=== PATIENT | male | born 2000 | race Hispanic/Latino ===

== ENCOUNTER 2023-11-15 17:10 | Emergency (ER) | payer SELFPAY ==
[2023-11-15 17:13] VITALS: BP 155/93
[2023-11-15 17:41] LABS: % Basophils 0.4 % (0-2); % Eosinophils 0.5 % (0-6); % Immature Granulocytes 0.4 % (0-0.5); % Lymphocytes 24.5 % (20.5-51.1); % Monocytes 4.8 % (1.7-9.3); % Neutrophils 69.4 % (42.2-75.2); Absolute Basophils 0.1 10^3/uL (0-0.2); Absolute Eosinophils 0.1 10^3/uL (0-0.7); Absolute Immature Granulocytes 0.1 10^3/uL (0-0.05); Absolute Lymphocytes 3.1 10^3/uL (1.2-3.4); Absolute Monocytes 0.6 10^3/uL (0.1-0.6); Absolute Neutrophils 8.9 10^3/uL (1.4-6.5); Hematocrit 45.6 % (39.0-52.0); Hemoglobin 16.5 g/dL (13.0-18.0); Mean Corp Hgb Conc. 36.2 g/dL (33.0-37.0); Mean Corpuscular Hgb 29.8 pg (27.0-31.0); Mean Corpuscular Volume 82.5 fL (80.0-94.0); Nucleated Red Blood Cells % 0 % (-); Platelet Count 346 10^3/uL (130-400); Red Blood Cell Count 5.53 10^6/uL (4.70-6.10); Red Cell Dist. Width 12.9 % (11.5-14.5); White Blood Cell Count 12.8 10^3/uL (4.8-10.8)
[2023-11-15 17:57] LABS: ALT (SGPT) 15 U/L (0-50); AST (SGOT) 22 U/L (17-59); Alkaline Phosphatase 68 U/L (38-126); Blood Urea Nitrogen 22 mg/dl (9-20); Carbon Dioxide 27 mmol/L (22-30); Chloride 102 mmol/L (98-107); Glucose 85 mg/dl (70-99); Potassium 4.2 mmol/L (3.5-5.1); Sodium 138 mmol/L (135-145); Total Bilirubin 0.6 mg/dl (0.2-1.3); Total Protein 7.7 g/dl (6.3-8.2); eGFR > 60.00
[2023-11-15 18:03] LABS: COVID-19 Antigen Negative (Negative)
[2023-11-15 20:09] LABS: Erythrocyte Sed Rate 2 mm/hour (0-20)
--- NOTE | 2023-11-15 20:11 | ED.GENMED ---
History of Present Illness
General
Chief Complaint: Musculo-Skeletal Complaint
Source: patient
Exam Limitations: none
Time Seen by Provider: 11/15/23 19:04
Nursing documentation reviewed up to this point in time: agreed with
Travel History
Have you had any contact with someone who has COVID-19?: No
Do you have any symptoms of coronavirus? Fever > 100 degrees, chills, cough, shortness of breath, sore throat, loss of taste or smell, muscle aches, or headache?: No
History of Present Illness
History of Present Illness:
Patient is a 23-year-old male who presents to the ER for evaluation. Language line used and translation. Complaining of pain throughout his entire body muscles and joints for the past 2 weeks. He reports he is having subjective fevers he denies
any actual rash but has noticed redness to his knees. He reports a couple days ago he had redness to his left knee now it is in his right knee. He denies any actual swelling.. He has no other complaints that he denies any injury.
Past History
Past History
ED Past Medical History: None; Negative Asthma, HTN, Hypercholesterolemia or NIDDM
ED Past Surgical History: None
Social History
Tobacco: Former smoker
Alcohol: Occasional
Drug: Marijuana
Personal: Single
Living: alone
Review of Systems
Review of Systems
Allergies reviewed?: Yes
All Other Systems: ROS reviewed and negative except as documented in HPI and ROS
Constitutional: Reports fever
EENT: Reports no symptoms
Respiratory: Reports no symptoms
Cardiac: Reports no symptoms
ABD/GI: Reports no symptoms
: Reports no symptoms
Musculoskeletal: Reports joint pain and muscle pain
Skin: Reports other (redness to knees )
Neurological: Reports no symptoms
Psychiatric: Reports no symptoms
Phy Exam
General Physical Exam
General Presentation: no apparent distress
General age: appears stated age
General Skin: warm and dry
General Habitus: normal
General Mental: alert
General Hydration: appears well hydrated
Cardiovascular Exam
Cardiovascular Exam: regular rate/rhythm, no murmur and normal peripheral pulses
Pulmonary Exam
Pulmonary Exam: lungs clear and no respiratory distress
Gastrointestinal Exam
Gastrointestinal Exam: normal bowel sounds, non tender and soft
Neurological Exam
Neurological Exam: alert and oriented x3
Musculoskeletal Exam
Musculoskeletal Exam: full ROM and other (No joint swelling full range of motion all extremities no erythema)
Skin Exam
Skin Exam: normal color and warm/dry
Psychiatric Exam
Psychiatric Exam: normal mood/affect
Course
Orders/Labs/Results
Orders:
Orders
11/15/23 17:30
C-Reactive Protein Urgent
Comment: ADD ON
COVID-19 Antigen Urgent
Source: Nasal Swab
Complete Blood Count/With Diff Urgent
Comprehensive Metabolic Panel Urgent
Creatine Phosphokinase Urgent
Comment: ADD ON
Erythrocyte Sed Rate Urgent
Comment: ADD ON
Lyme Progressive Urgent
Comment: ADD ON
Influenza A+B Rapid Molecular Urgent
LIAN Source: Nasal Swab
Specimen Description:
11/15/23 19:54
Add On- LAB Urgent
Tests Added?: ESR and CRP
11/15/23 19:55
Add On- LAB Urgent
Tests Added?: Lyme
11/15/23 21:30
Vital Signs- Treatment ONCE
Frequency: Once
11/15/23 21:43
Add On- LAB Urgent
Tests Added?: cpk
Abnormal Lab Results
11/15/23
17:30
WBC 12.8 H 10^3/uL
(4.8-10.8)
Abs Immat Gran (auto) 0.1 H 10^3/uL
(0-0.05)
Absolute Neuts (auto) 8.9 H 10^3/uL
(1.4-6.5)
BUN 22 H mg/dl
(9-20)
11/15/23 17:30
11/15/23 17:30
Vital Signs
Initial and Last Documented VS:
Initial Vital Signs
Temp Pulse Resp BP Pulse Ox
98.4 F 100 18 155/93 99
11/15/23 17:13 11/15/23 17:13 11/15/23 17:13 11/15/23 17:13 11/15/23 17:13
Last Documented Vital Signs
Temp Pulse Resp BP Pulse Ox
98.2 F 87 18 133/87 99
11/15/23 21:43 11/15/23 21:43 11/15/23 17:13 11/15/23 21:43 11/15/23 21:43
MDM/Problems Addressed
Differential Diagnosis Includes:
not limited to: viral syndrome possible Lyme
MDM/Problems Addressed:
Patient is a 23-year-old male who presents to the ER for complaints of pain in his arms and legs for the past 2 weeks. He feels sore but denies injury. Denies any fever or chills. He does go to the gym but denies any injury. He presents awake
alert no acute distress. There is no obvious swelling or redness on exam full range of motion to all joints he is nontoxic .he has no weakness on exam.
He denies any fever or chills and is afebrile here white count very minimally elevated. Sed rate CRP normal CPK normal. Patient is in no acute distress and well-appearing Lyme is pending I did review with patient via language line that he will be
contacted if this is positive. He will be given the instructions for f/u with family practice residency clinic
*Critical Care Note
Total Time (30-74mins, 75-104mins- exclusive of procedures): Not Applicable
ED Attending Note
-
Portions of this chart may have been created with voice recognition software.� Occasional wrong word or��sound alike� substitutions may have occurred due to the inherent limitations of voice recognition software.
Discharge Plan
Departure
Patient Disposition: Home (Routine Discharge)
Date of Disposition: 11/15/23
Time of Disposition: 22:33
Patient with high blood pressure during this ER visit?: Yes
Condition: Fair
Covid-19: Not Applicable
Discharge Problem:
Myalgia
Instructions: Muscle and Bone Pain (DC)
Prescriptions:
No Action
Shantel Bounty Anti Anxiety/Stress
1 tab PO HS
ibuprofen 600 mg tablet
600 mg PO Q8H PRN (Reason: Pain) Qty: 15 0RF
diphenhydramine HCl [Benadryl] 25 mg capsule
25 mg PO TID PRN (Reason: itching) Qty: 10 0RF
Referrals:
[facility] [Outside]
NONE,* [Family Provider] -
Activity Restrictions/Additional Instructions:
Follow-up with family practice clinic in the next several days for reevaluation.
return if any worsening of symptoms.
Interventions
Interventions:
*Risk Screen - Suicide Last Done: 11/15/23 17:13
*General Assessment Last Done: 11/15/23 17:13
*Neglect/Abuse Screening Last Done: 11/15/23 17:13
ED- Fall Risk Assessment Last Done: 11/15/23 18:57
*ED COVID-19 Vaccine History Last Done: 11/15/23 18:56
ED-Musculoskeletal Assessment Last Done: 11/15/23 18:58
Discharge Date and Time
Print Language: CENTRAL AFRICAN
[2023-11-15 20:28] VITALS: BMI 28.1
[2023-11-15 20:38] LABS: C-Reactive Protein < 5.00 mg/L (0.0-10.00)
[2023-11-15 21:43] VITALS: BP 133/87
[2023-11-15 22:23] LABS: Creatine Phosphokinase 110 U/L (55-170)
[2023-11-18 16:32] LABS: Lyme Antibody Screen, EIA Negative (Negative)
== END 2023-11-15 22:43 | disposition home or self-care (01) ==
LOC: EMR 17:10
PROVIDERS: Emergency Medicine; EMERGENCY PHYSICIAN Emergency Medicine
DX: M79.18 Myalgia, other site (principal); M79.602 Pain in left arm; M79.601 Pain in right arm; M79.604 Pain in right leg; M79.605 Pain in left leg; R50.9 Fever, unspecified; Z11.52 Encounter for screening for COVID-19; R26.2 Difficulty in walking, not elsewhere classified; Z87.891 Personal history of nicotine dependence
CPT/HCPCS: 99283; 80053; 82550; 85025; 85652; 86140; 86618; 87502; 87811

== ENCOUNTER 2024-03-01 22:37 | Emergency (ER) | payer SELFPAY ==
[2024-03-01 22:39] VITALS: BP 131/91
[2024-03-01 23:04] LABS: % Basophils 0.4 % (0-2); % Eosinophils 1.5 % (0-6); % Immature Granulocytes 0.2 % (0-0.5); % Lymphocytes 46.7 % (20.5-51.1); % Neutrophils 45.2 % (42.2-75.2); Absolute Eosinophils 0.1 10^3/uL (0-0.7); Absolute Lymphocytes 4.5 10^3/uL (1.2-3.4); Absolute Monocytes 0.6 10^3/uL (0.1-0.6); Absolute Neutrophils 4.4 10^3/uL (1.4-6.5); Hematocrit 41.7 % (39.0-52.0); Hemoglobin 15.6 g/dL (13.0-18.0); Mean Corp Hgb Conc. 37.4 g/dL (33.0-37.0); Mean Corpuscular Volume 80.2 fL (80.0-94.0); Mean Platelet Volume 9.4 fL (7.4-10.4); Nucleated Red Blood Cells % 0 % (-); Platelet Count 374 10^3/uL (130-400); Red Cell Dist. Width 12.6 % (11.5-14.5); White Blood Cell Count 9.6 10^3/uL (4.8-10.8)
[2024-03-01 23:21] LABS: ALT (SGPT) 22 U/L (0-50); AST (SGOT) 23 U/L (17-59); Alkaline Phosphatase 67 U/L (38-126); Blood Urea Nitrogen 19 mg/dl (9-20); Calcium 9.9 mg/dl (8.4-10.2); Carbon Dioxide 28 mmol/L (22-30); Chloride 101 mmol/L (98-107); Glucose 101 mg/dl (70-99); Potassium 4.2 mmol/L (3.5-5.1); Sodium 141 mmol/L (135-145); Total Bilirubin 0.9 mg/dl (0.2-1.3); Total Protein 7.6 g/dl (6.3-8.2); eGFR > 60.00
--- NOTE | 2024-03-02 02:11 | ED.GENMED ---
History of Present Illness
<MAGNOLIA Villalta - Last Filed: 03/02/24 03:46>
General
Chief Complaint: Facial Problem
Source: patient
Exam Limitations: none
Time Seen by Provider: 03/02/24 02:11
Nursing documentation reviewed up to this point in time: agreed with
History of Present Illness
History of Present Illness:
Patient is a 23-year-old male who presents to the ER for evaluation. Via language line patient complains of symptoms for the past 3 weeks including pain to the right side of his face/jaw worse with chewing.patient also complains of swelling and
reports now he does feel that his eye is getting swollen. He denies any rash fever chills nausea vomiting. He denies any blurry vision. Intermittent headaches. He does feel the pain radiates to his right ear times. He does not have tooth pain.
NO pcp
Past History
<MAGNOLIA Villalta - Last Filed: 03/02/24 03:46>
Past History
ED Past Medical History: None; Negative Asthma, HTN, Hypercholesterolemia or NIDDM
ED Past Surgical History: None
Social History
Tobacco: Former smoker
Alcohol: Occasional
Drug: Marijuana
Personal: Single
Living: alone
Review of Systems
<MAGNOLIA Villalta - Last Filed: 03/02/24 03:46>
Review of Systems
Allergies reviewed?: Yes
All Other Systems: ROS reviewed and negative except as documented in HPI and ROS
Constitutional: Reports no symptoms; Denies fever, fatigue or chills
EENT: Reports other (pain when chewing right jaw region )
Respiratory: Reports no symptoms
Cardiac: Reports no symptoms
ABD/GI: Reports no symptoms; Denies nausea or vomiting
Musculoskeletal: Reports no symptoms
Skin: Reports no symptoms; Denies rash
Neurological: Reports headache (intermittent right sided headache )
Phy Exam
<MAGNOLIA Villalta - Last Filed: 03/02/24 03:46>
General Physical Exam
General Presentation: no apparent distress
General age: appears stated age
General Skin: warm and dry
General Habitus: normal
General Mental: alert
General Hydration: appears well hydrated
ENT Exam
ENT Exam: EOMI, TM's normal, pharynx normal and neck supple
Eye Exam
Eye Exam: PERRL, EOMI, conjunctiva normal, visual hung normal and other (Conjunctiva is clear to right eye mild swelling to upper eyelid)
Eye Exam General: PERRL: bilateral and EOM intact: bilateral
Pupil Exam: Bilateral: round and reactive
Neurological Exam
Neurological Exam: alert and oriented x3
Musculoskeletal Exam
Musculoskeletal Exam: other (Mild swelling to right side of face no trismus; mildly tender to right mandible area)
Skin Exam
Skin Exam: normal color and warm/dry
Psychiatric Exam
Psychiatric Exam: normal mood/affect
Course
<MAGNOLIA Villalta - Last Filed: 03/02/24 03:46>
Orders/Labs/Results
Orders:
Orders
03/01/24 22:58
Complete Blood Count/With Diff Urgent
Comprehensive Metabolic Panel Urgent
03/02/24 03:07
CT Facial Bones W/ Iv Contrast Urgent
Comment:
Reason For Exam: right sided facial swelling
CT Head W/o Iv Contrast Urgent
Comment:
Reason For Exam: headache intermittent
IV Insert/Care/Rem.- Treatment PRN
03/02/24 03:13
0.9% Sodium Chloride 1000 ml [Nss] 1,000 ml IV BOLUS
Abnormal Lab Results
03/01/24
22:58
MCHC 37.4 H g/dL
(33.0-37.0)
Absolute Lymphs (auto) 4.5 H 10^3/uL
(1.2-3.4)
Glucose 101 H mg/dl
(70-99)
03/01/24 22:58
03/01/24 22:58
Vital Signs
Initial and Last Documented VS:
Initial Vital Signs
Temp Pulse Resp BP Pulse Ox
98.4 F 78 16 131/91 99
03/01/24 22:39 03/01/24 22:39 03/01/24 22:39 03/01/24 22:39 03/01/24 22:39
Last Documented Vital Signs
Temp Pulse Resp BP Pulse Ox
98.4 F 78 16 131/91 99
03/01/24 22:39 03/01/24 22:39 03/01/24 22:39 03/01/24 22:39 03/01/24 22:39
Mixer Operator Vacuum Pan Salt consulted with Physician
Mixer Operator Vacuum Pan Salt consulted with physician?: Yes
Name of Physician Consulted: jose
<Kathi Burgess, DO - Last Filed: 03/02/24 04:37>
Orders/Labs/Results
Orders:
Orders
03/01/24 22:58
Complete Blood Count/With Diff Urgent
Comprehensive Metabolic Panel Urgent
03/02/24 03:07
CT Facial Bones W/ Iv Contrast Urgent
Comment:
Reason For Exam: right sided facial swelling
CT Head W/o Iv Contrast Urgent
Comment:
Reason For Exam: headache intermittent
IV Insert/Care/Rem.- Treatment PRN
03/02/24 03:13
0.9% Sodium Chloride 1000 ml [Nss] 1,000 ml IV BOLUS
Abnormal Lab Results
03/01/24
22:58
MCHC 37.4 H g/dL
(33.0-37.0)
Absolute Lymphs (auto) 4.5 H 10^3/uL
(1.2-3.4)
Glucose 101 H mg/dl
(70-99)
03/01/24 22:58
03/01/24 22:58
Vital Signs
Initial and Last Documented VS:
Initial Vital Signs
Temp Pulse Resp BP Pulse Ox
98.4 F 78 16 131/91 99
03/01/24 22:39 03/01/24 22:39 03/01/24 22:39 03/01/24 22:39 03/01/24 22:39
Last Documented Vital Signs
Temp Pulse Resp BP Pulse Ox
98.4 F 78 16 131/91 99
03/01/24 22:39 03/01/24 22:39 03/01/24 22:39 03/01/24 22:39 03/01/24 22:39
<MAGNOLIA Villalta - Last Filed: 03/02/24 03:46>
MDM/Problems Addressed
MDM/Problems Addressed:
Case discussed with ED physician who evaluated patient patient complains of right-sided facial pain for the past 3 weeks has noticed pain with chewing to the right side of the face now has had mild swelling the right side of face with swelling
around the eye. Pain does radiate to right ear. He denies any dental pain however possible dental abscess. As discussed ED physician will order CT facial bones. pt denies any fever chills he is nontoxic-appearing no meningismus normal white count.
<Kathi Burgess DO - Last Filed: 03/02/24 04:37>
*Radiology
Radiology exam reviewed: radiology read reviewed
*Pulse Oximetry
Patient hypoxic: no
*Critical Care Note
Total Time (30-74mins, 75-104mins- exclusive of procedures): Not Applicable
ED Attending Note
<MAGNOLIA Villalta - Last Filed: 03/02/24 03:46>
-
Portions of this chart may have been created with voice recognition software.� Occasional wrong word or��sound alike� substitutions may have occurred due to the inherent limitations of voice recognition software.
<Kathi Burgess DO - Last Filed: 03/02/24 04:37>
ED Attending Note
Patient seen and examined by attending physician: Yes
I performed a history and physical exam of patient and discussed management with resident, I reviewed resident's note and agree with documented findings and plan of care.: Yes
ED Attending Note:
This is a 23-year-old primarily Bel[place]ian-speaking gentleman who presents with near 3-week history of right sided facial pressure, pain that is worse with chewing on the right side accompanied with mild swelling sensation of his right eye. He denies
sore throat, no eye pain, no vision difficulty nor loss. He has had some intermittent headaches but no dizziness or lightheadedness, no fevers or chills, no neck pain or back pain.
No significant past medical history.
He lacks a primary care physician, lacks healthcare coverage.
GENERAL: 23-year-old male is bright and alert, pleasant, appears in no acute distress. Easily communicative.
EYE: There is very minimal swelling of upper and lower lid on the right but no erythema. No tenderness to palpation of the orbit nor eye. pupils equal and reactive. Extraocular muscles intact. Anicteric
NECK: Supple, nontender, no meningismus, no significant adenopathy.
ENT: posterior pharynx is clear, oral mucosa is moist. TM clear b/l, nares have mildly boggy turbinates without rhinorrhea. There is mild tenderness to the right TMJ, right lateral maxillary sinus as well as mild tenderness to the right upper
posterior molars but no overt dental carry nor dental abscess.
CARDIAC: Regular rate and rhythm. no murmur.
LUNGS: Clear breath sounds bilaterally, no acute respiratory distress, no wheezes/rales/rhonchi
NEUROLOGICAL: Alert and oriented x3, no focal neuro deficits. Gait is mckeon and steady.
SKIN: Warm and dry, normal color, skin intact. No rash.
Concern for occult dental abscess, right maxillary sinusitis. With intermittent headaches must consider acute intracranial issue thus will check CT of the head, CT facial bones with contrast.
Labs are reassuring, unremarkable and patient reports no fever. With ongoing symptoms for 3 weeks, no rash, herpes zoster is unlikely.
03/02/[address] of the head is unremarkable. CT of the face shows mucosal thickening within the right maxillary sinus. This could certainly be sinusitis in nature, other consideration is occult dental infection right posterior upper molars.
Will treat with a course of Augmentin and I have prescribed ibuprofen for as needed pain.
Patient has been referred to our free clinic for follow-up.
Discharge Plan
Departure
Patient Disposition: Home (Routine Discharge)
Date of Disposition: 03/02/24
Time of Disposition: 04:32
Patient with high blood pressure during this ER visit?: No
Condition: Good
Discharge Problem:
Chronic right maxillary sinusitis, Dentalgia
Instructions: Sinusitis, Adult ED, Toothache
Prescriptions:
New
amoxicillin-pot clavulanate 875-125 mg tablet
1 tab PO BID Qty: 14 0RF
ibuprofen 600 mg tablet
600 mg PO QID PRN (Reason: fever or pain) Qty: 20 0RF
No Action
Shantel Bounty Anti Anxiety/Stress
1 tab PO HS
ibuprofen 600 mg tablet
600 mg PO Q8H PRN (Reason: Pain) Qty: 15 0RF
diphenhydramine HCl [Benadryl] 25 mg capsule
25 mg PO TID PRN (Reason: itching) Qty: 10 0RF
Referrals:
[facility] - Call in 1-3 days for appt
NONE,* [Family Provider] -
Interventions
Interventions:
*General Assessment Last Done: 03/01/24 22:39
ED- Neurological Assessment Last Done: 03/02/24 03:24
ED-Skin Assessment Last Done: 03/02/24 03:24
Discharge Date and Time
Print Language: HUNGARIAN
[2024-03-02] MEDS: NSS 1000 IV (03:46)
[2024-03-02] MEDS: AUGMENTIN 875 MG/125 MG 1 TABLET PO (04:58)
[2024-03-02 05:12] VITALS: BP 124/85
== END 2024-03-02 05:15 | disposition home or self-care (01) ==
LOC: EMR 22:37
PROVIDERS: Student in an Organized Health Care Education/Training Program; EMERGENCY PHYSICIAN Emergency Medicine
DX: J32.0 Chronic maxillary sinusitis (principal); K08.89 Other specified disorders of teeth and supporting structures; Z87.891 Personal history of nicotine dependence
CPT/HCPCS: 99285; 96360; 70450; 70487; 80053; 85025; Q9967

== ENCOUNTER 2024-11-22 12:33 | Emergency (ER) | payer SELFPAY ==
[2024-11-22 12:43] VITALS: BP 139/98
[2024-11-22 13:05] LABS: % Basophils 0.6 % (0-2); % Eosinophils 1.1 % (0-6); % Immature Granulocytes 0.5 % (0-0.5); % Monocytes 5.8 % (1.7-9.3); Absolute Basophils 0.1 10^3/uL (0-0.2); Absolute Eosinophils 0.1 10^3/uL (0-0.7); Absolute Immature Granulocytes 0.1 10^3/uL (0-0.05); Absolute Lymphocytes 3.2 10^3/uL (1.2-3.4); Absolute Monocytes 0.6 10^3/uL (0.1-0.6); Absolute Neutrophils 6.2 10^3/uL (1.4-6.5); Hematocrit 46.2 % (39.0-52.0); Hemoglobin 17.1 g/dL (13.0-18.0); Mean Corpuscular Hgb 30.3 pg (27.0-31.0); Mean Corpuscular Volume 81.9 fL (80.0-94.0); Mean Platelet Volume 9.8 fL (7.4-10.4); Nucleated Red Blood Cells % 0 % (-); Platelet Count 331 10^3/uL (130-400); Red Blood Cell Count 5.64 10^6/uL (4.70-6.10); Red Cell Dist. Width 12.9 % (11.5-14.5); White Blood Cell Count 10.2 10^3/uL (4.8-10.8)
[2024-11-22 13:18] LABS: INR 0.95
--- NOTE | 2024-11-22 14:43 | ED.GENMED ---
History of Present Illness
General
Chief Complaint: Cardiac Symptoms
Time Seen by Provider: 11/22/24 14:07
History of Present Illness
History of Present Illness:
24-year-old male without significant past medical history presenting for chest tightness and shortness of breath. Patient reports symptoms started on Saturday after he was cleaning inside his house. He was using a heavy-duty metal cleaner. Notes that the
windows were closed and the doors were closed. He feels like he inhaled too much and has since been having irritation when he breathes. Denies cardiac history. Denies pulmonary history. No reported fever. No report of abdominal pain. He denies
any direct ingestion of the chemical.
Patient Slovenian-speaking with interpretation by diplomatic interpreter device
Past History
Past History
ED Past Medical History: None; Negative Asthma, HTN, Hypercholesterolemia or NIDDM
ED Past Surgical History: None
Social History
Tobacco: Former smoker
Alcohol: Occasional
Drug: Marijuana
Personal: Single
Living: alone
Phy Exam
Physical Exam
Physical Exam:
General: Well-appearing, no clinical signs of dehydration, nontoxic and in no acute distress
HEENT: protecting airway
Neck: appears supple
CV: Normal heart rate, regular rhythm
Resp: No accessory muscle use, no increased work of breathing, lungs clear to auscultation bilaterally
Abd: No distention
Extremities: No deformities, no swelling
Neuro: alert, no focal neurologic deficit
: deferred
Rectal: deferred
Psych: Normal affect
Skin: Intact
Course
Orders/Labs/Results
Orders:
Orders
11/22/24 12:48
EKG [Electrocardiogram (*1)] Urgent
Reason for Study: Chest Pain
EKG- Treatment ONCE
CR Chest - 2 Views Urgent
Comment:
Reason For Exam: SOB
11/22/24 12:52
Complete Blood Count/With Diff Urgent
Prothrombin Time Urgent
11/22/24 13:29
Comprehensive Metabolic Panel Urgent
Troponin I Urgent
Abnormal Lab Results
11/22/24
12:52
Abs Immat Gran (auto) 0.1 H 10^3/uL
(0-0.05)
11/22/24 12:52
Vital Signs
Initial and Last Documented VS:
Initial Vital Signs
Temp Pulse Resp BP Pulse Ox
98.8 F 115 18 139/98 98
11/22/24 12:43 11/22/24 12:43 11/22/24 12:43 11/22/24 12:43 11/22/24 12:43
Last Documented Vital Signs
Temp Pulse Resp BP Pulse Ox
98.8 F 115 18 139/98 98
11/22/24 12:43 11/22/24 12:43 11/22/24 12:43 11/22/24 12:43 11/22/24 12:43
MDM/Problems Addressed
MDM/Problems Addressed:
24-year-old male without significant past medical history presenting for shortness of breath and chest tightness after inhaling a cleaning solution. Vital signs are significant for mild tachycardia, however resolved without intervention
On exam patient is resting comfortably, no acute respiratory distress. Lung exam is unremarkable, no wheezing, no focal abnormal lung sounds. No stridor. EKG is nonischemic, no arrhythmia. Ultimately suspect bronchial irritation from the
cleaning solution. Patient denies any direct ingestion without any present concern for severe toxic exposure. Screening laboratory analysis obtained, unremarkable. Chest x-ray without any acute cardiopulmonary disease. Will prescribe albuterol
inhaler for therapeutics. Otherwise feel stable for discharge with continued outpatient supportive therapy. Communicated via counselor manager to avoid cleaning in a room without windows and doors closed. Return precautions discussed.
*EKG
Interpreted by ED Provider?: Yes
EKG Intrepretation Date: 11/22/24
EKG Intrepretation Time: 14:46
Interpretation: normal
Comparison EKG: no changes (3/26/22)
Heart Rate: 87
Rate: normal
Rhythm: sinus
[place]: normal axis
Interval: normal interval
QRS Pattern: normal QRS
Ischemia: no ischemia
*Critical Care Note
Total Time (30-74mins, 75-104mins- exclusive of procedures): Not Applicable
ED Attending Note
-
Portions of this chart may have been created with voice recognition software.� Occasional wrong word or��sound alike� substitutions may have occurred due to the inherent limitations of voice recognition software.
Discharge Plan
Departure
Patient with high blood pressure during this ER visit?: No
Condition: Good
Discharge Problem:
Shortness of breath, Inhalation injury
Instructions: Chemical ingestion in adults
Prescriptions:
New
albuterol sulfate 90 mcg/actuation aero powdr breath act w/sensor
90 mcg inhalation Q6H PRN (Reason: shortness of breath) Qty: 1 0RF
No Action
Shantel Bounty Anti Anxiety/Stress
1 tab PO HS
ibuprofen 600 mg tablet
600 mg PO Q8H PRN (Reason: Pain) Qty: 15 0RF
diphenhydramine HCl [Benadryl] 25 mg capsule
25 mg PO TID PRN (Reason: itching) Qty: 10 0RF
amoxicillin-pot clavulanate 875-125 mg tablet
1 tab PO BID Qty: 14 0RF
ibuprofen 600 mg tablet
600 mg PO QID PRN (Reason: fever or pain) Qty: 20 0RF
Referrals:
NONE,* [Family Provider] -
Activity Restrictions/Additional Instructions:
You were seen in the emergency department for shortness of breath after inhalation of a cleaning substance
You were found to have normal EKG, blood work, chest x-ray. We suspect you have some irritation to your lungs. You were prescribed an inhaler. Please use every 4-6 hours as needed
Please follow-up closely with your primary care physician.
Return to the emergency department for any worsening of your symptoms, or any development of chest pain, difficulty breathing, abdominal pain with persistent vomiting and inability to tolerate food or liquid by mouth (concern for dehydration),
weakness, headache or confusion, fever greater than 100.4, or any additional symptoms that are concerning to you.
Thank you for choosing [facility].
Interventions
Interventions:
*Risk Screen - Suicide Last Done: 11/22/24 12:47
*General Assessment Last Done: 11/22/24 12:47
*Neglect/Abuse Screening Last Done: 11/22/24 12:47
*ED COVID-19 Vaccine History Last Done: 11/22/24 12:47
Discharge Date and Time
Print Language: ENGLISH
[2024-11-22 15:11] LABS: ALT (SGPT) 20 U/L (0-50); AST (SGOT) 22 U/L (17-59); Albumin 5.2 g/dl (3.5-5.0); Alkaline Phosphatase 65 U/L (38-126); Blood Urea Nitrogen 20 mg/dl (9-20); Carbon Dioxide 29 mmol/L (22-30); Chloride 102 mmol/L (98-107); Glucose 107 mg/dl (70-99); Potassium 3.9 mmol/L (3.5-5.1); Sodium 140 mmol/L (135-145); Total Bilirubin 1.1 mg/dl (0.2-1.3); Total Protein 8.2 g/dl (6.3-8.2); eGFR > 60.00
== END 2024-11-22 16:15 | disposition home or self-care (01) ==
LOC: EMR 12:33
PROVIDERS: Emergency Medicine; EMERGENCY PHYSICIAN Student in an Organized Health Care Education/Training Program
DX: R07.89 Other chest pain (principal); R06.02 Shortness of breath; Z87.891 Personal history of nicotine dependence
CPT/HCPCS: 99283; 71046; 80053; 85025; 85610; 93005

== ENCOUNTER 2024-11-26 19:27 | Emergency (ER) | payer SELFPAY ==
[2024-11-26 19:30] VITALS: BP 152/99
[2024-11-26 20:29] VITALS: BP 147/89
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
== END 2024-11-26 21:28 | disposition home or self-care (01) ==
LOC: EMR 19:27
PROVIDERS: EMERGENCY PHYSICIAN Emergency Medicine
DX: R07.89 Other chest pain (principal); R03.0 Elevated blood-pressure reading, without diagnosis of hypertension; Z87.891 Personal history of nicotine dependence
CPT/HCPCS: 99283; 71046

== ENCOUNTER 2025-04-30 22:42 | Emergency (ER) | payer SELFPAY ==
[2025-04-30 22:46] VITALS: BP 159/101
--- NOTE | 2025-05-01 01:35 | ED.GENMED ---
History of Present Illness
General
Chief Complaint: Rectal Bleeding
Source: patient and previous hospital records (Previous ED visits including November 2023, February 2024 and a visit in 2021 for similar complaints of generalized myalgias, headache. Unremarkable workup on each visit including unremarkable laboratory
studies, unremarkable inflammatory markers, Lyme titer - November 2023. Unremarkable CT of the head February)
Exam Limitations: none and other (Patient is Armenian-speaking, language line lang interpreter utilized)
Time Seen by Provider: 05/01/25 00:45
Nursing documentation reviewed up to this point in time: agreed with
History of Present Illness
History of Present Illness:
The patient is a 25-year-old male who presents with concern for blood in his stool, which he noticed today. He describes the stool as being somewhat hard and having a little blood and mucus. He is feeling panicked as this has not happened to him
before. He reports having intermittent abdominal discomfort this evening but denies definitive abdominal pain. No nausea or vomiting. He reports subjective fever since yesterday, denies sore throat, nasal congestion, or cough. He has not had a
rash. No recent travel nor recent antibiotic use. He took a dose of acetaminophen eight hours prior to presentation. He denies NSAID nor aspirin use. The patient has experienced variable bowel movements, including some hard stools, but denies
any recent diarrhea.
The patient also mentions experiencing generalized aches in the body, particularly in the feet, knees, eyes, and head; ongoing for the past week. He has felt generally unwell, noting, �I have been feeling very bad, really bad.� He has no similar
symptoms among household members.
Upon review of records, patient has been evaluated in this ED on several previous occasions over the past few years for similar generalized myalgias. Unremarkable workup on each visit including unremarkable laboratory studies, unremarkable
inflammatory markers, negative Lyme titer November 2023. Unremarkable CT of the head February 2024.
He takes no medicines on a daily basis.
He continues to work part-time in a [employer].
He has followed up with our free clinic but admits to lengthy wait time to get an appointment and due to onset of bright red blood in stool tonight, this prompted his urgent ED visit.
Past History
Past History
ED Past Medical History: Psychiatric (Anxiety); Negative Asthma, HTN, Hypercholesterolemia or NIDDM
ED Past Surgical History: None
Social History
Tobacco: Former smoker
Alcohol: Occasional
Drug: Marijuana
Personal: Single
Living: alone
Employment: Employed ([employer])
Family History
Family History: Other (Noncontributory)
Phy Exam
Physical Exam
Physical Exam:
GENERAL: 25-year-old primarily Armenian-speaking gentleman appears his stated age, he is bright and alert, smiling and easily communicative, appears in no acute distress. Language line official court interpreter utilized.
EYE: pupils equal and reactive. anicteric
NECK: Supple, nontender, no meningismus, no significant adenopathy.
ENT: posterior pharynx is clear, oral mucosa is moist. TM clear b/l, nares patent.
CARDIAC: Regular rate and rhythm. no murmur.
LUNGS: Clear breath sounds bilaterally, no acute respiratory distress, no wheezes/rales/rhonchi
ABDOMEN: Soft, nondistended, without focal tenderness, no r/g, no cvat. normoactive BS. Rectal exam reveals scant bright red blood that is heme positive. No masses.
NEUROLOGICAL: Alert and oriented x3, no focal neuro deficits. Gait is steady.
SKIN: Warm and dry, normal color, skin intact. No rash.
MUSCULOSKELETAL: No C/C/E. peripheral pulses are full and equal b/l. No definitive palpable tenderness. There is no joint effusion nor erythema. There is no rash. Full range of motion without difficulty.
PSYCH: Normal and appropriate interaction.
Course
Orders/Labs/Results
Orders:
Orders
05/01/25 01:37
CPK [Creatine Phosphokinase] Urgent
CRP [C-Reactive Protein] Urgent
Comprehensive Metabolic Panel Urgent
Lyme Progressive Urgent
05/01/25 01:38
Complete Blood Count/With Diff Urgent
Sed Rate [Erythrocyte Sed Rate] Urgent
05/01/25 02:44
Anusol Hc Suppository [Anusol Hc] 25 mg RECTAL NOW STA
Abnormal Lab Results
05/01/25 05/01/25
01:37 01:38
Absolute Lymphs (auto) 3.9 H 10^3/uL
(1.2-3.4)
BUN 25 H mg/dl
(9-20)
Glucose 105 H mg/dl
(70-99)
05/01/25 01:38
05/01/25 01:37
Vital Signs
Initial and Last Documented VS:
Initial Vital Signs
Temp Pulse Resp BP Pulse Ox
98.4 F 96 18 159/101 94
04/30/25 22:46 04/30/25 22:46 04/30/25 22:46 04/30/25 22:46 04/30/25 22:46
Last Documented Vital Signs
Temp Pulse Resp BP Pulse Ox
98.4 F 96 18 114/80 97
04/30/25 22:46 04/30/25 22:46 04/30/25 22:46 05/01/25 02:00 05/01/25 02:30
MDM/Problems Addressed
Differential Diagnosis Includes:
The Differential Diagnosis includes, in no particular order and is not limited to:
- Hemorrhoids
- Anal fissure
- Gastrointestinal infection
- Inflammatory bowel disease
- Colorectal polyps
- Ischemic colitis
- Constipation-related trauma
- Upper gastrointestinal bleed with fast transit
- Viral gastroenteritis
- Rectal carcinoma
Generalized myalgias, ongoing for a week.
Exam is overall benign. He is afebrile. No evidence of rash.
Concern for viral syndrome
Myositis
Muscle fatigue/overuse syndrome
Lyme's disease versus other tickborne illness
MDM/Problems Addressed:
- Acute: Blood in stool, Abdominal pain with constipation, Generalized body aches
- Chronic: Intermittent generalized myalgias, history of anxiety
Overall well in appearance. Afebrile.
Abdomen is soft without appreciable tenderness.
There is note of scant bright red blood per rectal exam and with history of intermittent constipation, hard stools I suspect internal hemorrhoid.
Will check labs including inflammatory markers, Lyme titer.
Will consider imaging depending on results and clinical course.
*Pulse Oximetry
SaO2: 96
Oxygen Mode of Delivery: Room air
Patient hypoxic: no
*Critical Care Note
Total Time (30-74mins, 75-104mins- exclusive of procedures): Not Applicable
Update Note
Update Note:
02:45
Labs are all unremarkable, within normal limits. Inflammatory markers are normal. CPK is normal as well.
Abdomen remains soft without appreciable tenderness.
I suspect bright red rectal bleeding streaks of brown stool may be internal hemorrhoid in nature and may be exacerbated by intermittent constipation.
At this point no indication for imaging/CT.
Recommend trial of Anusol suppositories along with increasing fiber in diet, adding a daily fiber supplement such as Metamucil or FiberCon. Staying well-hydrated on a daily basis.
May continue Tylenol as needed for discomfort. Due to rectal bleeding would avoid NSAIDs.
Will plan for follow-up with our free clinic. Patient may require outpatient GI evaluation. This can be arranged through our free clinic.
ED Attending Note
-
Portions of this chart may have been created with voice recognition software.� Occasional wrong word or��sound alike� substitutions may have occurred due to the inherent limitations of voice recognition software.
Discharge Plan
Departure
Patient Disposition: Home (Routine Discharge)
Date of Disposition: 05/01/25
Time of Disposition: 02:46
Patient with high blood pressure during this ER visit?: No
Condition: Good
Discharge Problem:
Bright red rectal bleeding, Myalgia
Instructions: Hemorrhoids (DC), Bloody Stools, Adult (DC), Muscle, joint, and bone pain (DC), Constipation in adults - ED (DC)
Prescriptions:
New
hydrocortisone acetate [Anusol-HC] 25 mg suppository
25 mg NM BID Qty: 30 0RF
No Action
Shantel Bounty Anti Anxiety/Stress
1 tab PO HS
ibuprofen 600 mg tablet
600 mg PO Q8H PRN (Reason: Pain) Qty: 15 0RF
diphenhydramine HCl [Benadryl] 25 mg capsule
25 mg PO TID PRN (Reason: itching) Qty: 10 0RF
amoxicillin-pot clavulanate 875-125 mg tablet
1 tab PO BID Qty: 14 0RF
ibuprofen 600 mg tablet
600 mg PO QID PRN (Reason: fever or pain) Qty: 20 0RF
albuterol sulfate 90 mcg/actuation aero powdr breath act w/sensor
90 mcg inhalation Q6H PRN (Reason: shortness of breath) Qty: 1 0RF
Referrals:
[facility] - Call in 1-3 days for appt
NONE,* [Family Provider, Internal Medicine]
Interventions
Interventions:
*Risk Screen - Suicide Last Done: 04/30/25 22:46
*General Assessment Last Done: 04/30/25 22:46
*Neglect/Abuse Screening Last Done: 04/30/25 22:46
*ED- Fall Risk Assessment Last Done: 04/30/25 23:44
*ED COVID-19 Vaccine History Last Done: 04/30/25 23:44
*ED Influenza Vaccine History Last Done: 04/30/25 23:44
CW-Fdslpe-Edgigmywdm Assessment Last Done: 04/30/25 23:54
ED- Cardiac Assessment Last Done: 04/30/25 23:54
ED- Pulmonary Assessment Last Done: 04/30/25 23:54
Discharge Date and Time
Print Language: ETHIOPIAN
[2025-05-01 01:44] VITALS: BP 118/83
[2025-05-01 01:54] LABS: Hematocrit 42.8 % (39.0-52.0); Hemoglobin 15.6 g/dL (13.0-18.0); Mean Corp Hgb Conc. 36.4 g/dL (33.0-37.0); Mean Corpuscular Volume 82.3 fL (80.0-94.0); Nucleated Red Blood Cells % 0 % (-); Platelet Count 305 10^3/uL (130-400); Red Cell Dist. Width 12.9 % (11.5-14.5)
[2025-05-01 02:00] VITALS: BP 114/80
[2025-05-01 02:17] LABS: ALT (SGPT) 19 U/L (0-50); AST (SGOT) 20 U/L (17-59); Albumin 4.6 g/dl (3.5-5.0); Alkaline Phosphatase 58 U/L (38-126); Blood Urea Nitrogen 25 mg/dl (9-20); Calcium 9.3 mg/dl (8.4-10.2); Carbon Dioxide 26 mmol/L (22-30); Chloride 106 mmol/L (98-107); Glucose 105 mg/dl (70-99); Potassium 4.2 mmol/L (3.5-5.1); Sodium 141 mmol/L (135-145); Total Protein 7.2 g/dl (6.3-8.2); eGFR > 60.00
[2025-05-01 02:19] LABS: C-Reactive Protein < 5.00 mg/L (0.0-10.00)
[2025-05-01 03:00] VITALS: BP 129/87
[2025-05-01] MEDS: ANUSOL HC 25 MG RECTAL (03:18)
[2025-05-03 11:36] LABS: Lyme Antibody Screen, EIA Negative (Negative)
== END 2025-05-01 03:26 | disposition home or self-care (01) ==
LOC: EMR 22:42
PROVIDERS: EMERGENCY PHYSICIAN Emergency Medicine
DX: K92.1 Melena (principal); M79.10 Myalgia, unspecified site; R51.9 Headache, unspecified; F41.9 Anxiety disorder, unspecified; Z60.3 Acculturation difficulty; Z87.891 Personal history of nicotine dependence
CPT/HCPCS: 99283; 80053; 82550; 85025; 85652; 86140; 86618